=== PATIENT | male | born 1955 | race African-American/Black ===

== ENCOUNTER 2016-12-14 05:46 | Inpatient (IN) | payer SELFPAY ==
[2016-12-14] VITALS (7 sets, daily range): BP systolic 124–146; BP diastolic 78–108
[~2016-12-14] VITALS: Ht 167.6 cm; Wt 50.8 kg
[2016-12-14] MEDS ORDERED: IPRATROPIUM BROMIDE (0.02%) 0.5MG/2.5ML NEB HHN STA (06:07)
[2016-12-14] MEDS ORDERED: ALBUTEROL (0.083%) 2.5MG/3ML NEB HHN STA (06:07)
[2016-12-14 06:47] LABS: INR 1.1; PARTIAL THROMBOPLASTIN TIME 28.2 sec (23.4-31.0); PROTHROMBIN TIME 11.4 sec (9.4-11.6)
[2016-12-14 06:49] LABS: BASOPHILS % 0.9 % (0.0-2.0); EOSINOPHILS % 2.1 % (0.0-5.0); HEMATOCRIT. 38.8 % (42.0-52.0); HEMOGLOBIN. 12.7 g/dL (14.0-18.0); LYMPHOCYTES % 8.8 % (20.0-50.0); MEAN CORPUSCULAR HEMOGLOBIN 26.2 pg (28.0-32.0); MEAN CORPUSCULAR VOLUME 79.7 fL (80.0-94.0); MEAN PLATELET VOLUME 10.2 fl (7.4-10.4); MONOCYTES % 4.7 % (2.0-8.0); NEUTROPHILS % 83.5 % (40.0-76.0); PLATELET 160 x1000/uL (130-400); RED BLOOD CELL COUNT 4.87 mill/uL (4.7-6.1); RED CELL DISTRIBUTION WIDTH 15.5 % (11.6-14.6)
[2016-12-14 07:02] LABS: CARBON DIOXIDE 25 mEq/L (21-32); CHLORIDE 110 mEq/L (98-107)
[2016-12-14 07:12] LABS: TROPONIN I 0.81 ng/mL (0.00-0.04)
[2016-12-14] MEDS ORDERED: AZITHROMYCIN 500 MG in DEXT 5% WATER 250 ML IV STA (07:13)
[2016-12-14] MEDS ORDERED: CEFTRIAXONE 1 G PREMIX 50 ML IV ONE (07:15)
[2016-12-14] MEDS ORDERED: ASPIRIN 325MG EC TABLET PO ONE (07:15)
[2016-12-14 07:39] LABS: BG BILEVEL POS AIRWAY PRESSURE ST=15/5; BG CARBOXYHEMOGLOBIN 0.8 % (0.5-1.5); BG DEOXYHEMOGLOBIN 2.1 % (0.0-5.0); BG FRACTION INSPIRED OXYGEN 75; BG HCO3 ACT 23.6 mmol/L (22.0-26.0); BG METHEMOGLOBIN 0.1 % (0.0-1.5); BG OXYGEN SATURATION 97.9 % (92.0-98.5); BG PH 7.399 (7.350-7.450); BG PO2 110.1 mmHg (75.0-100.0); BG PRESSURE SUPPORT 10; BG SAMPLE SITE RIGHT RADIAL; BG TOTAL HEMOGLOBIN 13.4 g/dL (12.0-18.0); BG VENT MODE MASK - BIPAP; BG VENT RATE 16 set
[2016-12-14] MEDS ORDERED: CLONIDINE 0.1MG TABLET PO PRN (10:15)
[2016-12-14] MEDS ORDERED: ONDANSETRON HCL 4MG/2ML VIAL IV PRN (10:15)
[2016-12-14] MEDS ORDERED: LORAZEPAM 2MG/ML CPJ IV PRN (10:15)
[2016-12-14] MEDS ORDERED: DOCUSATE SODIUM 100MG CAPSULE PO PRN (10:15)
[2016-12-14] MEDS ORDERED: ACETAMINOPHEN 325MG TABLET PO PRN (10:15)
[2016-12-14] MEDS ORDERED: IPRATROPIUM/ALBUTEROL 0.5-3(2.5)MG/3ML NEB INH PRN (10:15)
[2016-12-14] MEDS ORDERED: MAGNESIUM/ALUMINUM HYDROXIDE/SIMETHICONE 30ML UDC PO PRN (10:15)
[2016-12-14] MEDS ORDERED: SODIUM CHLORIDE 0.9% 1,000 ML IV SCH (10:45)
[2016-12-14] MEDS ORDERED: IOHEXOL-350 100 ML BOTTLE ONE (11:48)
[2016-12-14] MEDS ORDERED: SODIUM CHLORIDE 0.9% 10ML VIAL ONE (11:48)
[2016-12-14] MEDS: POTASSIUM CHLORIDE 20MEQ TABLET SR PO SCH ×2 (11:50→17:19)
[2016-12-14] MEDS: LOSARTAN POTASSIUM 50 MG TABLET PO SCH (11:50)
[2016-12-14] MEDS: FUROSEMIDE 40MG/4ML VIAL IVP SCH ×2 (11:50→17:19)
[2016-12-14] MEDS: ENOXAPARIN 60MG/0.6ML SYR SUBCUT SCH ×2 (11:50→23:47)
[2016-12-14] MEDS: LEVOFLOXACIN 500MG PREMIX 100 ML IV SCH (11:55)
[2016-12-14] MEDS ORDERED: ENOXAPARIN 40MG/0.4ML SYR SUBCUT SCH (12:00)
[2016-12-14] MEDS ORDERED: MORPHINE SULFATE 4 MG/ML CPJ (NOT FOR IM USE) IV PRN (13:00)
[2016-12-14 14:16] LABS: CREATINE KINASE MB FRACTION 14.4 ng/mL (0.5-3.6)
[2016-12-14 14:23] LABS: TROPONIN I 2.8 ng/mL (0.00-0.04)
[2016-12-14] MEDS ORDERED: ALBUTEROL (0.083%) 2.5MG/3ML NEB HHN PRN (18:30)
[2016-12-14] MEDS: IPRATROPIUM/ALBUTEROL 0.5-3(2.5)MG/3ML NEB HHN SCH (20:09)
[2016-12-14] MEDS: ATORVASTATIN CALCIUM 20MG TABLET PO SCH (21:04)
[2016-12-14] MEDS: NICOTINE 14MG PATCH TD SCH (21:04)
[2016-12-15] VITALS (12 sets, daily range): BP systolic 106–145; BP diastolic 47–98
[2016-12-15 06:34] LABS: BASOPHILS % 0.7 % (0.0-2.0); EOSINOPHILS % 2.9 % (0.0-5.0); HEMATOCRIT. 41.3 % (42.0-52.0); HEMOGLOBIN. 13.5 g/dL (14.0-18.0); LYMPHOCYTES % 27.8 % (20.0-50.0); MEAN CORPUSCULAR HEMOGLOBIN 25.7 pg (28.0-32.0); MEAN CORPUSCULAR VOLUME 78.7 fL (80.0-94.0); MONOCYTES % 8.8 % (2.0-8.0); NEUTROPHILS % 59.8 % (40.0-76.0); RED BLOOD CELL COUNT 5.25 mill/uL (4.7-6.1); RED CELL DISTRIBUTION WIDTH 14.9 % (11.6-14.6)
[2016-12-15 06:54] LABS: CARBON DIOXIDE 26 mEq/L (21-32); CHLORIDE 107 mEq/L (98-107)
[2016-12-15 07:27] LABS: MEAN PLATELET VOLUME 10.8 fl (7.4-10.4); PLATELET 151 x1000/uL (130-400)
[2016-12-15] MEDS: ASPIRIN 81MG EC TABLET PO SCH (08:19)
[2016-12-15] MEDS: POTASSIUM CHLORIDE 20MEQ TABLET SR PO SCH ×2 (08:19→16:44)
[2016-12-15] MEDS: LOSARTAN POTASSIUM 50 MG TABLET PO SCH (08:19)
[2016-12-15] MEDS: FUROSEMIDE 40MG/4ML VIAL IVP SCH ×2 (08:19→16:44)
[2016-12-15] MEDS ORDERED: ENOXAPARIN 60MG/0.6ML SYR SUBCUT SCH (09:10)
[2016-12-15] MEDS ORDERED: ENOXAPARIN 40MG/0.4ML SYR SUBCUT SCH (09:10)
[2016-12-15] MEDS ORDERED: POTASSIUM CHLORIDE 20MEQ TABLET SR PO NR (09:15)
[2016-12-15] MEDS: IPRATROPIUM/ALBUTEROL 0.5-3(2.5)MG/3ML NEB HHN SCH ×4 (09:34→21:00)
[2016-12-15] MEDS: CARVEDILOL 6.25 MG TABLET PO SCH ×2 (09:41→21:05)
[2016-12-15] MEDS: LEVOFLOXACIN 500MG PREMIX 100 ML IV SCH (12:14)
[2016-12-15] MEDS: ATORVASTATIN CALCIUM 20MG TABLET PO SCH (21:05)
[2016-12-15] MEDS: NICOTINE 14MG PATCH TD SCH (21:05)
[2016-12-16] VITALS (8 sets, daily range): BP systolic 96–112; BP diastolic 54–80
[2016-12-16] MEDS: IPRATROPIUM/ALBUTEROL 0.5-3(2.5)MG/3ML NEB HHN SCH ×2 (07:37→11:23)
[2016-12-16] MEDS: POTASSIUM CHLORIDE 20MEQ TABLET SR PO SCH (08:19)
[2016-12-16] MEDS: FUROSEMIDE 40MG/4ML VIAL IVP SCH (08:19)
[2016-12-16] MEDS: CARVEDILOL 6.25 MG TABLET PO SCH (08:19)
[2016-12-16] MEDS: ASPIRIN 81MG EC TABLET PO SCH (08:19)
[2016-12-16] MEDS: LOSARTAN POTASSIUM 50 MG TABLET PO SCH (08:20)
[2016-12-16] MEDS ORDERED: LEVOFLOXACIN 500MG PREMIX 100 ML IV SCH (12:00)
== END 2016-12-16 14:10 | disposition home or self-care (01) | DRG 190 ==
LOC: EDBD 05:46 → ER 05:46 → 3WST 09:18 → ENRESERV 09:49 → SUPCPDRO 09:55
PROVIDERS: ADMIT Internal Medicine Nephrology; ATTEND Internal Medicine Nephrology
PROC: 5A09357 Assistance with Respiratory Ventilation, Less than 24 Consecutive Hours, Continuous Positive Airway Pressure (ICD-10-PCS; principal; 2016-12-14)
DX: I21.4 Non-ST elevation (NSTEMI) myocardial infarction (principal); J96.01 Acute respiratory failure with hypoxia; I50.43 Acute on chronic combined systolic (congestive) and diastolic (congestive) heart failure; J18.9 Pneumonia, unspecified organism; I11.0 Hypertensive heart disease with heart failure; E11.9 Type 2 diabetes mellitus without complications; J44.0 Chronic obstructive pulmonary disease with (acute) lower respiratory infection; E87.5 Hyperkalemia; I16.1 Hypertensive emergency; F17.210 Nicotine dependence, cigarettes, uncomplicated; F14.10 Cocaine abuse, uncomplicated
CPT/HCPCS: 36415; 36600; 71010; 71275; 80048; 80053; 80061; 82375; 82553; 82805; 83036; 83605; 83690; 83735; 83880; 84484; 85025; 85610; 85730; 93005; 93306; 94640; 94660; 96365; 96366; 99285; A4216; J0456; J0696; J1650; J1940; J1956; J7050; J7060; J7611; J7620; Q9967